=== PATIENT | male | born 1960 | race Caucasian/White ===

== ENCOUNTER → 2016-03-24 | Outpatient (CLI) | payer OTHER ==
--- NOTE | 2016-03-24 12:22 | REP ---
MRI PELVIS WITH AND WITHOUT CONTRAST: TECHNIQUE: Axial T1, T2 fat sat, coronal STIR, T2 fat sat, T1, sagittal T2, post IV Gadolinium axial and sagittal T1 fat sat with the intravenous administration of 18 mL of Gadolinium. CLINICAL HISTORY: Prior prostate biopsy, rule out benign prostatic hypertrophy versus neoplasm. Please note the study was not performed utilizing the [employer] software, with no dynamic post contrast images performed. If that type of study is desired, the patient would need to return for a repeat specific MRI prostate with contrast utilizing the [employer] software. The visualized osseous structures demonstrate no definite bone lesion. There is no bone marrow edema. Prostate measures approximately 3.5 x 3.0 x 3.9 cm. No focal hypointense nodule is seen on the T2-weighted images. No abnormal enhancement is seen in this region. Seminal vesicles appear symmetrical and essentially unremarkable. There is no free fluid in the visualized pelvis. I see no adenopathy in the visualized pelvis. IMPRESSION: Prostate measurements 3.5 x 3.0 x 3.9 cm. No definite abnormality seen within the prostate itself on T2 or post contrast images. Signed by Ousmane Ruiz MD 03/24/2016 03:22 P
== END ==
LOC: M RAD 09:40
PROVIDERS: ATTEND Family Medicine
DX: R97.20 Elevated prostate specific antigen [PSA] (principal)
CPT/HCPCS: 72197; A9576

== ENCOUNTER → 2019-01-01 | Outpatient (CLI) | payer OTHER ==
[2019-01-01 17:32] LABS: BLOOD UREA NITROGEN 18 MG/DL (7-18); CARBON DIOXIDE LEVEL 26 MEQ/L (21-32); CHLORIDE LEVEL 106 MEQ/L (98-107); CREATININE FOR GFR 1.04 MG/DL (0.70-1.30); GLOMERULAR FILTRATION RATE > 60.0 (>56); GLUCOSE, FASTING 78 MG/DL (70-100); POTASSIUM SERUM 4.8 MEQ/L (3.5-5.1); SODIUM LEVEL 139 MEQ/L (136-145)
== END ==
LOC: M SMT 14:00
PROVIDERS: ATTEND Nurse Practitioner Family
DX: R97.20 Elevated prostate specific antigen [PSA] (principal)
CPT/HCPCS: 36415; 80048; 87086; G0463

== ENCOUNTER → 2019-01-03 | Outpatient (CLI) | payer OTHER ==
[~2019-01-03] MED LIST: PROHANCE 279.3MG/ML 15ML VIAL (A9576) As Ordered ONE; PROHANCE 279.3MG/ML 5ML VIAL (A9576) As Ordered ONE
--- NOTE | 2019-01-03 13:18 | REP ---
Multi parametric prostate MRI without and with IV gadolinium: History: Elevated prostate specific antigen. Comparisons: Comparison study March 24, 2016. TECHNIQUE: Using a phased array surface coil, small field of view imaging was acquired using T2-weighted scans in the axial, coronal, and sagittal imaging planes. Small field of view diffusion-weighted sequences are acquired. Small field of view axial T1-weighted scans are acquired dynamically before and after the intravenous administration of 19 mL of ProHance. Imaging is reviewed on the [employer] computer aided detection system. Prostate MRI findings: Pre and postcontrast imaging of the pelvis shows no evidence of skeletal metastatic disease or adenopathy. No extra prostatic neoplastic changes are noted. Prostate glandular dimensions are 4.0 x 3.3 x 3.6 cm for a calculated glandular volume of 27.04 mL. There are nodular changes in the central gland. There are three areas of interest identified in the prostate demonstrating low T2 signal and type 3 enhancement characteristics. These are outlined and submitted for consideration of MR/ultrasound fusion directed needle biopsy. Lesion #1 is in the right base anterior transition zone. It measures 1.0 x 0.5 x 1.0 cm, calculated volume 0.35 mL. It demonstrates intermediate signal intensity on T2-weighted scans, no restricted diffusion, and a type 3 enhancement curve. Clinically significant cancer is felt to be equivocal. Lesion #2 is in the left mid anterior peripheral zone. It measures 1.0 x 0.5 x 0.7 cm (0.24 mL) it shows linear/geographic area of low T2 signal intensity, no ADC reduction, and a type 3 enhancement curve. Clinically significant cancer is felt to be equivocal. Lesion #3 is located in the right apical lateral peripheral zone. Its dimensions are 0.8 x 0.5 x 0.7 cm (0.21 mL). This is a discrete homogeneous low signal intensity focus confined to the prostate with no reduction in ADC and a type 3 enhancement curve. Clinically significant cancer is felt to be equivocal. Impression: Multi parametric prostate MRI study as above. Three areas of interest are identified and submitted for consideration of fusion directed biopsy. Electronically Signed by Mahendra Oliveira MD 01/03/2019 06:24 P
== END ==
LOC: M RAD 07:56
PROVIDERS: ATTEND Nurse Practitioner Family
DX: R97.20 Elevated prostate specific antigen [PSA] (principal); R93.89 Abnormal findings on diagnostic imaging of other specified body structures
CPT/HCPCS: 72197; A9576

== ENCOUNTER → 2019-01-15 | Outpatient (CLI) | payer OTHER ==
--- NOTE | 2019-01-15 14:25 | REP ---
TRANSRECTAL ULTRASOUND GUIDANCE FOR PROSTATE BIOPSY: Transrectal ultrasound guidance is performed for MR ultrasound fusion guided biopsy performed by Dr. Cuevas. Multiple images of the prostate are recorded during the MR ultrasound fusion guided biopsy. Electronically Signed by Ousmane Ruiz MD 01/15/2019 05:05 P
== END ==
LOC: M SMT PRO 10:43
PROVIDERS: ATTEND Urology
DX: R97.20 Elevated prostate specific antigen [PSA] (principal)
CPT/HCPCS: 55700; 76942; G0416

== ENCOUNTER → 2019-01-23 | Outpatient (REF) | payer OTHER | LOC: M SMT 13:29 | PROVIDERS: ATTEND Urology | DX: R30.0 Dysuria (principal) ==

== ENCOUNTER 2023-02-07 20:27 | Emergency (ER) | payer OTHER ==
[~2023-02-07] VITALS: Ht 175.3 cm; Wt 98.5 kg
[2023-02-07 20:28] VITALS: TEMP 97
[2023-02-07] MEDS ORDERED: LISI10TA22 (20:52)
[2023-02-07] MEDS ORDERED: BUPR1TAB52 (20:52)
[2023-02-08 00:30] VITALS: BP 127/75; O2SAT 95
== END 2023-02-08 00:50 | disposition home or self-care (01) ==
LOC: M ED 20:27
DX: S06.0X0A Concussion without loss of consciousness, initial encounter (principal); W00.0XXA Fall on same level due to ice and snow, initial encounter; I10 Essential (primary) hypertension; Y92.009 Unspecified place in unspecified non-institutional (private) residence as the place of occurrence of the external cause; Y93.9 Activity, unspecified; Y99.9 Unspecified external cause status; Z91.018 Allergy to other foods; Z79.811 Long term (current) use of aromatase inhibitors; Z79.899 Other long term (current) drug therapy

== ENCOUNTER → 2023-07-19 | Outpatient (CLI) | payer OTHER ==
[~2023-07-19] MED LIST changes: +BUPR1TAB52; +LISI10TA22; -PROHANCE 279.3MG/ML 15ML VIAL (A9576) As Ordered ONE; +PROHANCE 279.3MG/ML 15ML VIAL ONE; -PROHANCE 279.3MG/ML 5ML VIAL (A9576) As Ordered ONE; +PROHANCE 279.3MG/ML 5ML VIAL ONE
== END ==
LOC: M PLAIMG 08:52
PROVIDERS: ATTEND Nurse Practitioner Family
DX: R97.20 Elevated prostate specific antigen [PSA] (principal)
CPT/HCPCS: 72197; A9576

== ENCOUNTER → 2023-07-26 | Outpatient (REF) | payer OTHER ==
[~2023-07-26] MED LIST changes: -PROHANCE 279.3MG/ML 15ML VIAL ONE; -PROHANCE 279.3MG/ML 5ML VIAL ONE
[2023-07-26 14:53] LABS: APPEARANCE, URINE CLEAR (CLEAR); BACTERIA, URINE AUTO NEGATIVE (NEGATIVE); BILIRUBIN, URINE AUTO NEGATIVE (NEGATIVE); BLOOD, URINE BLOOD NEGATIVE (NEGATIVE); COLOR, URINE STRAW (YELLOW); GLUCOSE, URINE (UA) AUTO NEGATIVE (NEGATIVE); KETONE, URINE AUTO NEGATIVE (NEGATIVE); LEUKOCYTE ESTERASE, URINE AUTO TRACE (NEGATIVE); NITRITE, URINE AUTO NEGATIVE (NEGATIVE); PROTEIN, URINE AUTO NEGATIVE (NEGATIVE); RBC, URINE AUTO 1 /HPF (0-3); SPECIFIC GRAVITY URINE AUTO 1.008 (1.002-1.035); SQUAMOUS EPITHELIAL CELL UR AU 0 /HPF (0-6); UROBILINOGEN, URINE AUTO 0.2 mg/dL (0.0-2.0); WBC, URINE AUTO 2 /HPF (0-3)
== END ==
LOC: M SMT 12:56
PROVIDERS: ATTEND Nurse Practitioner Family
DX: R97.20 Elevated prostate specific antigen [PSA] (principal)

== ENCOUNTER 2023-08-16 06:10 | Day surgery (SDC) | payer OTHER ==
[~2023-08-16] VITALS: Ht 175.3 cm; Wt 93.9 kg
[~2023-08-16 06:10] MED LIST changes: +LISI20TA33 PO
[2023-08-16] MEDS: LR 1,000 ML IV SCH (07:04)
[2023-08-16] MEDS ORDERED: MIDAZOLAM INJ 2MG/2ML VIAL As Ordered ONE (07:14)
[2023-08-16] MEDS ORDERED: LIDOCAINE 2% 100MG/5ML SDV (FOR ANES.) As Ordered ONE (07:14)
[2023-08-16] MEDS ORDERED: propofoL 200 MG/20 ML VIAL As Ordered ONE (07:14)
[2023-08-16] MEDS ORDERED: fentaNYL 100 MCG/2 ML INJECTION As Ordered ONE (07:15)
[2023-08-16] MEDS: LIDOCAINE 1% SDV 30ML VIAL As Ordered ONE (07:45)
[2023-08-16] MEDS: CIPROFLOXACIN/D5W 400 MG/200 ML BAG As Ordered ONE (07:45)
[2023-08-16] MEDS ORDERED: KETOROLAC 60MG 2ML VIAL As Ordered ONE (07:52)
[2023-08-16] MEDS ORDERED: CIPROFLOXACIN 400 MG in IV 1 EA IV ONE (08:15)
[2023-08-16 08:20] VITALS: BP 115/70; TEMP 97.1; O2SAT 98
== END 2023-08-16 08:25 | disposition home or self-care (01) ==
LOC: M SDC 06:10
PROVIDERS: ATTEND Urology
DX: R97.21 Rising PSA following treatment for malignant neoplasm of prostate (principal); F41.9 Anxiety disorder, unspecified; I10 Essential (primary) hypertension; D64.9 Anemia, unspecified; Z91.018 Allergy to other foods; Z79.899 Other long term (current) drug therapy
CPT/HCPCS: 55700; 76872; G0416; J0744; J1885; J2250; J3010

== ENCOUNTER 2023-09-14 11:27 | Day surgery (SDC) | payer OTHER ==
[~2023-09-14] VITALS: Ht 175.3 cm; Wt 91.7 kg
[~2023-09-14 11:27] MED LIST changes: -BUPR1TAB52; +BUPR1TAB52 PO; +FINA5TAB2 PO; +NS 1,000 ML IV ONE
[2023-09-14] MEDS ORDERED: LIDOCAINE 2% 100MG/5ML SDV (FOR ANES.) As Ordered ONE (13:24)
[2023-09-14] MEDS ORDERED: propofoL 200 MG/20 ML VIAL As Ordered ONE (13:24)
[2023-09-14] MEDS ORDERED: fentaNYL 100 MCG/2 ML INJECTION As Ordered ONE (13:56)
[2023-09-14 14:53] VITALS: TEMP 97.5
[2023-09-14 15:12] VITALS: BP 114/75; O2SAT 93
== END 2023-09-14 15:16 | disposition home or self-care (01) ==
LOC: M OPP 11:27
PROVIDERS: ATTEND Internal Medicine Gastroenterology
DX: D12.3 Benign neoplasm of transverse colon (principal); K64.8 Other hemorrhoids; K57.30 Diverticulosis of large intestine without perforation or abscess without bleeding; D50.9 Iron deficiency anemia, unspecified; I10 Essential (primary) hypertension; Z79.899 Other long term (current) drug therapy; Z91.018 Allergy to other foods
CPT/HCPCS: 43239; 45385; 88305; J3010